=== PATIENT | male | born 1980 | race Hispanic/Latino ===

== ENCOUNTER 2017-04-22 05:47 | Day surgery (SDC) | payer BC ==
[2017-04-20 10:16] VITALS: BMI 31.5
[2017-04-22] MEDS ORDERED: ceFAZolin IV 2 gm in Dextrose 1 GM/50 ML BAG IVPB ONE (07:36)
[2017-04-22] MEDS ORDERED: Bupivacaine 0.5% Inj(30mL) ONE (07:44)
[2017-04-22] MEDS ORDERED: Midazolam 2 MG/2 ML VIAL ONE (07:47)
[2017-04-22] MEDS ORDERED: Propofol 10 mg/ml Inj (20 ML) ONE ×3 (07:47→10:40)
[2017-04-22] MEDS ORDERED: Lactated Ringer's 1,000 ML IV ONE ×2 (07:55→10:59)
[2017-04-22] MEDS ORDERED: Rocuronium 10 mg/ml (10 ml) ONE (07:55)
[2017-04-22] MEDS ORDERED: Bacitracin 50,000 UNIT in Sodium Chloride 0.9% Irrig 1,000 ML IR SCH (09:00)
[2017-04-22] MEDS: HYDROmorphone 0.5 mg/0.5 ml ISec IVP PRN ×2 (11:06→11:23)
[2017-04-22] MEDS ORDERED: HYDROmorphone 0.5 mg/0.5 ml ISec ONE ×2 (11:06→11:23)
[2017-04-22] MEDS ORDERED: Lactated Ringer's 1,000 ML IV SCH (11:30)
[2017-04-22 11:37] VITALS: TEMP 98
--- NOTE | 2017-04-22 11:46 | PCM.SURG1 ---
Surgeon's Initial Post Op Note - Surgeon's Notes Surgeon: Demi Acosta MD Clinical Editor: Misael Dawson PA-C Type of Anesthesia: General Endo, Block Regional Pre-Operative Diagnosis: Left ankle #1 Achilles Tendon Tear. #2 Achilles tendon severe Tendonopathy Operative Findings: Left ankle #1 Achilles Tendon Tear. #2 Achilles tendon severe Tendonopathy Post-Operative Diagnosis: Left ankle #1 Achilles Tendon Tear. #2 Achilles tendon severe Tendonopathy Operation Performed: Left Ankle Open. #1 [place]'s Tendon primary repair w/ allograft augmentation. #2 short leg splint placement Specimen/Specimens Removed: Specimen= none. Tourniquet time= 83 min at 300 mmHg. complications= none. Implants= #5 fiberwire suture, #2 fiberwire suture , Arthroflex allograft Estimated Blood Loss: EBL {In ML}: 10 Blood Products Given: N/A Drains Used: No Drains Post-Op Condition: Good Date of Surgery/Procedure: 04/22/17 Time of Surgery/Procedure: 11:46
[2017-04-22 12:26] VITALS: O2SAT 100
[2017-04-22 13:06] VITALS: BP 125/64; PULSE 88; RESP 20
--- NOTE | 2017-04-22 14:36 | PCM.ANESB2 ---
Popliteal Nerve Block - Popliteal Nerve Block Date of Procedure: 04/22/17 Anesthesiologist: Federico Baker MD Pre-Procedure Diagnosis: left achilles tendon injury Procedure Performed: Popliteal Nerve Block Left - Procedure Popliteal Nerve Block: In PACU, left sciatic nerve block performed, popliteal approach, under ultrasound guidance. Mask, OR hat, sterile gloves worn. Area was cleaned with chloraprep. #21G stimuplex insulated 4 inch needle used. 30 cc 0.5% bupivacaine injected in 5 cc aliquots. Negative aspiration. Patient tolerated procedure well with relief of pain shortly after.
--- NOTE | 2017-04-22 22:04 | OP ---
PROCEDURE DATE: 04/22/2017 PREOPERATIVE DIAGNOSES: Left ankle: 1. Complete Achilles tendon tear. 2. Achilles tendon severe tendinopathy. POSTOPERATIVE DIAGNOSES: Left ankle: 1. Complete Achilles tendon tear. 2. Achilles tendon severe tendinopathy. PROCEDURE: Left ankle: 1. Achilles tendon primary repair with allograft augmentation. 2. Placement of short leg splint. SURGEON: Demi Acosta MD. HOTEL MAINTENANCE WORKER: Misael Dawson PA-C. JUSTIFICATION FOR HOTEL MAINTENANCE WORKER: Misael Dawson is a certified physician actuarial assistant whose skilled surgical services was an absolute necessity for successful completion of the procedure as he provided skilled surgical assistance with positioning of the patient, positioning of extremity, retraction of the vascular structures, preparation and exposure of Achilles tendon tear, placement of whip stitch, primary Achilles tendon fixation, allograft augmentation and fixation of the allograft, wound closure, placement of a short leg splint. Misael Dawson was present for the entire case and was an absolute necessity for successful completion of the procedure. TYPE OF ANESTHESIA: General endotracheal anesthesia with a postop regional nerve block placed by anesthesia staff in PACU. SPECIMEN: None. TOURNIQUET TIME: 83 minutes at 300 mmHg. COMPLICATIONS: None. IMPLANTS: #5 FiberWire suture, #2 FiberWire suture, ArthroFLEX allograft. ESTIMATED BLOOD LOSS: 10 mL. DRAINS: None. DISPOSITION: The patient was extubated, transferred to PACU in stable condition and tolerated procedure well. INDICATIONS FOR SURGERY: The patient is a 37-year-old male with no significant past medical history who presents to the office for the first time under my care as a referral from [facility] and [employer] on 04/18/2017 with left ankle pain and difficulty with ambulation since 04/17/2017. He stated that he was playing soccer recreationally on 04/17/2017 and planted his left foot to kick the ball and felt a pop at the posterior aspect of his ankle resulting in immediate 10/10 pain and inability to weight bear or ambulate. He was taken to the Emergency Room at [facility] and after evaluation by ER staff on review of imaging, he was diagnosed with left ankle Achilles tendon tear. He was placed in a posterior splint and referred for outpatient followup with orthopedic surgery. 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 Evaluation in the office revealed a positive Kinney sign and a palpable defect of the Achilles tendon proximally near the myotendinous junction. X-rays revealed a small Leodan's deformity, but overall normal alignment with no fracture. He was placed in a short leg cast in equinus position and was referred for an MRI, which was done at [facility] on 04/18/2017, which was read as severe tendinopathy of the Achilles tendon and Achilles tendon tear. He followed up in the office on 04/21/2017 for a final preoperative discussion. He was indicated for left ankle primary Achilles tendon repair with possibility of allograft augmentation. After reviewing his MRI imaging myself, I felt that the allograft augmentation was better suited for his repair as the quality of his Achilles tendon tissue appear to have severe tendinopathy and signal change on MRI. I reviewed the risks, benefits, and alternatives of the procedure at length with the patient with the risks included not limited to infection, neurovascular damage, need for further surgery, development of blood clots including DVT and PE, development of chronic pain and disability, wounds complications, failure of repair, need for further surgery, stiffness, inability to return to preinjury level of activity and sport. Anesthesia reactions including . After answering all those questions, stated they understood the risks and wish to proceed with surgery. On both office visits, he watched the surgical animation videos and diagnoses animation videos and stated that he understood the procedure as well as the need or the indication for the allograft augmentation and the surgery to be done. I spent a lot of time with him discussing the postop rehab protocol and the need for compliance of the rehab protocol in order to maximize chance of having successful outcome after surgery. He stated that he understood. He was referred to his primary care physician for pre-admission testing and the procedure was scheduled for 04/22/2017 at [facility]. PROCEDURE IN DETAIL: The patient was identified in the preoperative holding area and the left ankle was marked for surgery. Once again as described above, the risks, benefits and alternatives of the procedure were discussed at length with the patient and informed consent was obtained. After brief discussion with anesthesia staff, perioperative IV antibiotics in the form of 2 g of Ancef were administered and the patient was taken to the operating room on his stretcher. An initial time-out was done with the surgeon, anesthesia staff and OR staff and all were in agreement with the patient, procedure to be done and extremity to be operated on. General anesthesia was administered without difficulty or complication. The patient was then carefully brought to the prone position on the well-padded operating room table with all bony prominences and superficial neurovascular structures well padded. Once the cushioning and final positioning was confirmed, the tourniquet was placed high on the left thigh and set to 300 mmHg. The left lower extremity was prepped and draped in a standard sterile fashion. The left lower extremity was then exsanguinated and the tourniquet was inflated for a total tourniquet time of 83 minutes at 300 mmHg pressure. A final time-out was done with the surgeon, anesthesia staff, and OR staff, and all are in agreement with the patient, procedure to be done and extremity to be operated on. A posterior medially based incision was created, centered on the palpated defect of the Achilles tendon tear, measuring approximately 8 cm total at length through a skin down subcutaneous tissue, maintaining good hemostasis down to the level of the paratenon and fascia. It was clear at that point in time that there was significant tendinopathy tissue in both directions, both proximally and distally and full exposure of the distal stump as well as the proximal portion of the tear was necessary and the incision was lengthened to 8 cm approximately. The ends of both the proximal and distal Achilles tendon were exposed and debrided from hematoma and fibrinous soft tissue. The quality of the tendon was exhibiting severe tendinopathy and poor quality tissue. Multiple passes of the suture pulled right through with no good tissue to hold on to. A #5 FiberWire suture was placed as a baseball stitch on the proximal side of the tear starting at the end of the tear and working our way up proximally towards the myotendinous junction incorporating some of the myotendinous junction and then coming down the medial aspect of the proximal end of the Achilles tendon tear until suture exited at the tear with a successful baseball stitch placed on the lateral and medial aspect of the proximal aspect of the tear. This was repeated for the distal tear as well. Both ends of the medial and lateral #5 FiberWire suture were then brought, tied down to each other with the ankle in extreme plantar flexion. This created a semi stable repair. The suture was stable and there was a good repair established, but the quality of the tissue was questionable. At that point in time, the ArthroFLEX allograft acellular dermis was then opened and rinsed and secured to the repair and surrounding the repair as a scaffold and reinforcement, 360 degrees with no overlap with alternating 2.0 FiberWire suture and #1 Vicryl suture securing it to the primary Achilles repair tissue beneath it. Once the graft was stretched and secured into position, the construct was tested and indeed a stable Achilles tendon primary repair with allograft augmentation had been established. The wound was copiously irrigated and the tourniquet was deflated for a total tourniquet time of 83 minutes. Good hemostasis was achieved and primary closure was started with paratenon closure over the graft repair construct with #1 Vicryl suture followed by deep tissue reapproximating #1 and 2 plain 0-Vicryl suture followed by gurpreet for skin. Sterile dressings were applied and then the ankle was placed in a posterior and anterior slab, short leg splint in equinus position. Once the splint hardened with the cast padding, well padded below from the toes up to the tibial tuberosity. The patient was then brought into the supine position on his stretcher. The patient was then extubated and transferred to PACU in stable condition and tolerated the procedure well. DISPOSITION: The patient will be discharged to home once he is recovered from anesthesia. He will be strict nonweightbearing to the left lower extremity and elevate his ankle above the level of the heart at all times. He has been given a prescription for Percocet for pain control. We discussed at length DVT prophylaxis and options and the patient elected to proceed with Lovenox 40 mg once daily for two weeks starting postoperative day #1. He will follow up in the office at [facility] within one week and already has his postoperative appointment set up. He will contact me directly if there are any questions and concerns. He is instructed to keep the splint and dressings clean, dry, and intact until he follows up in the office. Demi Acosta MD
== END 2017-04-22 13:05 | disposition home or self-care (01) ==
LOC: C.SDS 05:47
PROVIDERS: ATTEND Student in an Organized Health Care Education/Training Program
DX: S86.012A Strain of left Achilles tendon, initial encounter (principal)
CPT/HCPCS: 27652; 97116; 97161; G8978; G8979; G8980; J0690; J1170; J2001; J2250; J2704; J3010; J7120